=== PATIENT | female | born 1940 | race Caucasian/White ===

== ENCOUNTER → 2018-09-21 | Outpatient (CLI) | payer OTHER ==
[~2018-09-21] VITALS: Ht 165.1 cm; Wt 89.8 kg
[~2018-09-21] MED LIST: DIGOXIN250 MCG PO; ELIQUIS5 MG PO; ESSENTIAL DAIL1 EACH PO; GLUCOSAMINE HC500 MG PO; GLUCOTROL5 MG PO; IMDUR 30 MG TAB30 M1 PO; LIPITOR 20 MG T20 M1 PO; LOPRESSOR50 PO; METFORMIN HCL500 MG PO; NITROGLYCERIN0.4 MG SUBLING; REMERON15 MG PO; SPIRONOLACTONE25 MG PO; VASOTEC 2.5MG2.5 M1 PO
[2018-09-21 11:35] LABS: HEMATOCRIT 41.2 % (37.0-47.0); HEMOGLOBIN 13.8 gm/dL (12.0-15.0); MCH 30.2 pg (26.0-34.0); MCHC 33.5 g/dL (28.0-37.0); MCV 90.1 fL (80.0-100.0); MPV 8.4 fl. (7.2-11.1); RBC 4.57 mil/uL (4.20-5.00); RDW-CV 13.2 % (10.5-14.5); WBC 6.3 thou/uL (4.0-11.0)
[2018-09-21 11:43] LABS: ANION GAP 11 mmol/L (7-16); APTT 23.2 Seconds (25.0-31.3); BUN 11 mg/dL (7-18); CALCIUM 9.6 mg/dL (8.5-10.1); CHLORIDE 103 mmol/L (98-107); CO2 28 mmol/L (21-32); CREATININE 0.9 mg/dL (0.6-1.3); GLUCOSE 284 mg/dL (70-99); PROTIME 10.1 Seconds (9.20-11.50); SODIUM 142 mmol/L (136-145)
[2018-09-21 11:48] LABS: ALBUMIN 3.5 g/dL (3.4-5.0); ALKALINE PHOSPHATASE 66 U/L (46-116); CHOLESTEROL 226 mg/dL (<200); HDL CHOLESTEROL 48 mg/dL (>40); LDL CHOLESTEROL 103 mg/dL (<100); SGOT 14 U/L (15-37); SGPT 25 U/L (30-65); TC:HDL 4.7 Ratio (Not establshd); TOTAL BILIRUBIN 0.9 mg/dL (<0.1-1.0); TOTAL PROTEIN 7.3 g/dL (6.4-8.2); TRIGLYCERIDE 375 mg/dL (<150); VLDL 75 mg/dL (<40)
[2018-09-21 11:49] LABS: SERUM ASSESSMENT Clear
[2018-09-21 12:33] VITALS: BP 124/65
[2018-09-21 15:00] VITALS: BP 121/58
[2018-09-21 15:15] VITALS: BP 121/63
[2018-09-21 15:30] VITALS: BP 123/65
[2018-09-21 15:45] VITALS: BP 123/65
--- NOTE | 2018-09-21 15:57 | EKG ---
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: : 1940 Requested By: Chano Camarillo Order Number: [id number] Reading MD: Chano Camarillo Measurements Intervals [place] Rate: 113 P: CA: QRS: -11 QRSD: 94 T: 21 QT: 301 QTc: 413 Interpretive Statements Atrial fibrillation Ventricular premature complex LVH by voltage No previous ECG available for comparison Electronically Signed On 09-21-2018 15:57:18 COLLECTION ADMINISTRATOR by Chano Camarillo [email or web address] <ELECTRONICALLY SIGNED> By: Chano Camarillo MD, [facility] 09/21/18 1557 1130 1130 Chano Camarillo MD, FACC /EPI
[2018-09-21 16:16] VITALS: BP 129/61
--- NOTE | 2018-09-22 13:25 | CARD ---
[address] [address] CARDIAC CATH REPORT Name: RAUDEL MCCABE Room: [facility].#: [id number] Admission: 09/21/18 Attend Phys: Chano Camarillo MD Discharge: Date of : 36 Report #: [id number] THIS REPORT FOR: //name// APPROVED REPORT Study performed: 09/21/2018 14:01:35 Patient Details The patient is a 78 year-old female Event Personnel Chano Camarillo Confectionery Maker, Yojana Gardiner RN Culture Manager, Ananth Gonzalez, Sangeeta Andrews RTR Scrub Procedures Performed Left Heart Cath w/or w/o Coronaries [id number] [facility] , Right transradial approach Procedure Narrative A Slender Glidesheath sheath was inserted into the right radial artery. Coronary angiography was performed using coronary diagnostic catheters. The right coronary system was accessed and visualized with a JR4 5fr catheter. The left coronary system was accessed and visualized with a [place] 4.0 6fr catheter. The left ventricle was accessed and visualized with a PC: Angled Pig 5fr catheter. Left ventricular/Aortic Valve gradient assessed . Pre-demployment femoral angiogram was performed . Closure device was deployed with a 6 Fr MynxGrip 6/7F. The patient tolerated the procedure well and there were no complications associated with the procedure. RFA was accessed with 6fr Sheath to complete imaging of RCA and LV. Mynx was used for closure at the end of the procedure. Intraoperative Conscious Sedation Sedation start time: 14:06 Case end Time: 14:52 Fentanyl 25 mcg Fluoro Time: 20.6 minutes Dose: DAP [id number] cGycm2 1942 mGy Contrast Type and Amount: Visipaque 180 ml Diagnostic Cath Left Main upward take off , nomral vessel LAD proximal normal, mid body and distal, medium sized, [place] [address] CARDIAC CATH REPORT Name: RAUDEL MCCABE Room: [facility]#: [id number] Admission: 09/21/18 Attend Phys: Chano Camarillo MD Discharge: Date of : 36 Report #: [id number] Diagonal 1 large, normal Circumflex very tortuous and normal, distal small vessel mild 30% OM1 normal Right Coronary large, dominant, proximal 40%, mid body 30%, distal normal R PDA large normal RPLV medium and normal Left Ventriculography The left ventricle is normal in size with normal contractility. The left ventricular ejection fraction is estimated to be 50%. Left ventricular wall motion abnormalities are not present. There is 1+ mitral insufficiency. Hemodynamics The aortic pressure is 97/63 mmHg with a mean of 76 mmHg. The left ventricular pressure is 114/6 mmHg with a mean of mmHg. The left ventricular end diastolic pressure is 11 mmHg. Conclusion 1. mild CAD 2. low normal EF 3. Mild aortic stenosis, peak gradient 12-15mmHG <ELECTRONICALLY SIGNED> By: Chano Camairllo MD, FACC 09/22/18 1324 1324 [id number] Camarillo MD, FAC /INF
== END ==
LOC: M.CL 10:34
PROVIDERS: Internal Medicine Cardiovascular Disease
DX: I25.119 Atherosclerotic heart disease of native coronary artery with unspecified angina pectoris (principal); I35.0 Nonrheumatic aortic (valve) stenosis; I25.5 Ischemic cardiomyopathy; I48.0 Paroxysmal atrial fibrillation; I10 Essential (primary) hypertension; Z87.891 Personal history of nicotine dependence; Z79.899 Other long term (current) drug therapy; Z79.84 Long term (current) use of oral hypoglycemic drugs